=== PATIENT | female | born 1985 | race Caucasian/White ===

== ENCOUNTER 2023-12-17 10:49 | Inpatient (IN) | payer BC ==
[~2023-12-17] VITALS: Ht 170.2 cm; Wt 144.7 kg
[2023-12-17 11:10] LABS: BASOPHILS # (AUTO) 0.1 K/uL (0.0-0.2); BASOPHILS % (AUTO) 0.6 % (0.0-2.0); EOSINOPHILS # (AUTO) 0.1 K/uL (0.0-0.7); HEMATOCRIT 47 % (33-45); HEMOGLOBIN 15.3 g/dL (11.5-14.8); LYMPHOCYTES # (AUTO) 2.2 K/uL (0.8-4.8); LYMPHOCYTES % (AUTO) 25.4 % (20.0-44.0); MEAN CORPUSCULAR HEMOGLOBIN 28 PG (26.0-33.0); MEAN CORPUSCULAR HGB CONC 33 g/dl (31.0-36.0); MEAN CORPUSCULAR VOLUME 86 fL (82-100); MONOCYTES # (AUTO) 0.4 K/uL (0.1-1.30); MONOCYTES % (AUTO) 4.8 % (2.0-12.0); NEUTROPHILS % (AUTO) 68.2 % (43.0-81.0); PLATELET COUNT (AUTO) 455 K/uL (150-450); RED BLOOD CELL COUNT(AUTO) 5.43 MIL/uL (4.0-5.2); RED CELL DISTRIBUTION WIDTH 13.5 % (11.5-15.0); WHITE BLOOD COUNT (AUTO) 8.8 K/uL (4.3-11.0)
[2023-12-17] MEDS ORDERED: IV NS 0.9% 250 ML IV ONE (11:11)
[2023-12-17] MEDS ORDERED: IOHEXOL-350 100 ML VIAL IV ONE (11:11)
[2023-12-17] MEDS ORDERED: CT SWABBABLE VALVE TRANS SET 1 EA INFUS.SET MC ONE (11:11)
[2023-12-17 11:20] LABS: CALCIUM, SERUM 9.4 mg/dL (8.5-10.1); CARBON DIOXIDE 27 mmol/L (21-32); CHLORIDE 102 mmol/L (98-107); CREATININE 0.8 mg/dL (0.6-1.3); GLUCOSE 142 mg/dL (74-106); POTASSIUM 4.2 mmol/L (3.5-5.1); SODIUM SERUM 139 mmol/L (136-145); UREA NITROGEN, BLOOD 7 mg/dL (7-18)
[2023-12-17 11:22] LABS: INR 1.08 (0.91-1.10); PARTIAL THROMBOPLASTIN TIME 27.1 SEC (24.3-34.3); PROTHROMBIN TIME 11.4 SECS (9.2-11.1)
[2023-12-17] MEDS ORDERED: PROP10TA68 PO (12:40)
[2023-12-17] MEDS ORDERED: ESCI10TA PO (12:40)
[2023-12-17] MEDS ORDERED: NORE5TAB PO (12:40)
[2023-12-17] MEDS ORDERED: SEMA1PEN SQ (12:40)
[2023-12-17] MEDS ORDERED: AMLO-213 PO (12:40)
[2023-12-17] MEDS ORDERED: ASPIRIN 81 MG TAB.CHEW PO ONE (13:00)
[2023-12-17] MEDS ORDERED: MAG HYDROX/AL HYDROX/SIMETH 30 ML UDC PO PRN (13:00)
[2023-12-17] MEDS ORDERED: MAGNESIUM HYDROXIDE 30 ML UDC PO PRN (13:00)
[2023-12-17] MEDS ORDERED: Z GUARD REMEDY 4 OZ OINT TP PRN ×2 (13:00→14:15)
[2023-12-17] MEDS ORDERED: ONDANSETRON HCL/PF 4 MG/2 ML VIAL IVP PRN ×2 (13:00→14:15)
[2023-12-17] MEDS ORDERED: CLOPIDOGREL BISULFATE 75 MG TABLET PO ONE (13:00)
[2023-12-17 13:48] LABS: APPEARANCE,URINE CLEAR (CLEAR); BILIRUBIN,URINE NEGATIVE (NEGATIVE); BLOOD, URINE 1+ Ery/uL (NEGATIVE); COLOR,URINE YELLOW (YELLOW); KETONES,URINE NEGATIVE (NEGATIVE); LEUKOCYTE ESTERASE ,URINE NEGATIVE (NEGATIVE); NITRITE, URINE NEGATIVE (NEGATIVE); PROTEIN,URINE TRACE mg/dl (NEGATIVE); UGLUCOSE NEGATIVE (NEGATIVE); UROBILINOGEN,URINE 0.2 EU/dL (0.2)
[2023-12-17 14:05] LABS: ADD URINE CULTURE NO; BACTERIA,URINE Rare /HPF (None Seen); WBC,URINE 0-2 /HPF (0-3)
[2023-12-17 15:23] LABS: THYROID STIMULATING HORMONE 1.37 uIU/mL (0.358-3.74)
[2023-12-17 20:00] VITALS: BP 138/99; TEMP 98.2; O2SAT 96
[2023-12-17] MEDS: ATORVASTATIN 40 MG TABLET PO SCH (22:02)
[2023-12-17] MEDS: ACETAMINOPHEN 325 MG TABLET PO PRN (22:02)
[2023-12-18] VITALS: BP 142/109; TEMP 98.4; O2SAT 94; O2SAT 95
[2023-12-18 04:00] VITALS: BP 135/101; TEMP 98.2; O2SAT 98
[2023-12-18 05:00] VITALS: BP 135/101; TEMP 98.2; O2SAT 98
[2023-12-18] MEDS: ESCITALOPRAM OXALATE (10 MG) 10 MG TABLET PO SCH (08:45)
[2023-12-18 09:47] LABS: BASOPHILS # (AUTO) 0.1 K/uL (0.0-0.2); BASOPHILS % (AUTO) 0.6 % (0.0-2.0); EOSINOPHILS # (AUTO) 0.1 K/uL (0.0-0.7); EOSINOPHILS % (AUTO) 1.6 % (0.0-6.0); HEMATOCRIT 43 % (33-45); HEMOGLOBIN 14.4 g/dL (11.5-14.8); LYMPHOCYTES # (AUTO) 2.1 K/uL (0.8-4.8); LYMPHOCYTES % (AUTO) 23.9 % (20.0-44.0); MEAN CORPUSCULAR HEMOGLOBIN 28 PG (26.0-33.0); MEAN CORPUSCULAR HGB CONC 33 g/dl (31.0-36.0); MEAN CORPUSCULAR VOLUME 85 fL (82-100); MONOCYTES # (AUTO) 0.4 K/uL (0.1-1.30); MONOCYTES % (AUTO) 4.8 % (2.0-12.0); NEUTROPHILS % (AUTO) 69.1 % (43.0-81.0); PLATELET COUNT (AUTO) 434 K/uL (150-450); RED BLOOD CELL COUNT(AUTO) 5.12 MIL/uL (4.0-5.2); RED CELL DISTRIBUTION WIDTH 13.5 % (11.5-15.0); WHITE BLOOD COUNT (AUTO) 8.7 K/uL (4.3-11.0)
[2023-12-18 10:03] LABS: CALCIUM, SERUM 8.7 mg/dL (8.5-10.1); CREATININE 0.8 mg/dL (0.6-1.3); MAGNESIUM 1.8 mg/dL (1.8-2.4); PHOSPHORUS 2.8 mg/dL (2.5-4.9); POTASSIUM 3.2 mmol/L (3.5-5.1)
[2023-12-18 12:00] VITALS: BP 130/82; TEMP 98.1; O2SAT 98
[2023-12-18] MEDS: POTASSIUM CHLORIDE 10 MEQ TABLET.SA PO ONE (13:02)
[2023-12-18] MEDS: ASPIRIN EC 81 MG TABLET.DR PO SCH (13:02)
[2023-12-18] MEDS: CLOPIDOGREL BISULFATE 75 MG TABLET PO SCH (13:03)
[2023-12-18 16:24] VITALS: BP 154/98; TEMP 99.3; O2SAT 98
[2023-12-18 20:34] VITALS: BP 155/112; TEMP 98.4; O2SAT 97
[2023-12-19] MEDS: METHOCARBAMOL (500MG) 500 MG TABLET PO SCH (00:18)
[2023-12-19 00:26] VITALS: BP 159/117; TEMP 98.4; O2SAT 100
[2023-12-19] MEDS: MORPHINE SULFATE INJ 2 MG/ML DISP.SYRIN IV ONE (03:21)
[2023-12-19 04:11] VITALS: BP 144/99; TEMP 97.9; O2SAT 99
[2023-12-19 04:13] VITALS: BP 144/99; TEMP 97.9; O2SAT 99
[2023-12-19 08:00] VITALS: BP 133/96; TEMP 97.9; O2SAT 98
[2023-12-19] MEDS: GABAPENTIN 300 MG CAPSULE PO SCH (09:35)
[2023-12-19] MEDS ORDERED: ATOR40TA PO (11:41)
[2023-12-19] MEDS ORDERED: Aspirin Ec PO (11:41)
[2023-12-19 12:00] VITALS: BP 130/88; TEMP 98.4; O2SAT 90
[2023-12-22 09:09] LABS: VITAMIN B1 THIAMINE,WB 115.6 nmol/L (66.5-200.0)
== END 2023-12-19 14:51 | disposition home or self-care (01) | DRG 69 ==
LOC: ER 10:50 → TELE 14:07
PROVIDERS: ADMIT Nurse Practitioner Family; ATTEND Nurse Practitioner Family
DX: G45.9 Transient cerebral ischemic attack, unspecified (principal); Z68.43 Body mass index [BMI] 50.0-59.9, adult; G54.0 Brachial plexus disorders; M54.32 Sciatica, left side; F41.9 Anxiety disorder, unspecified; E66.9 Obesity, unspecified; I10 Essential (primary) hypertension; E03.9 Hypothyroidism, unspecified; E66.01 Morbid (severe) obesity due to excess calories; E78.5 Hyperlipidemia, unspecified; F32.A Depression, unspecified; R53.1 Weakness; R73.9 Hyperglycemia, unspecified; R27.8 Other lack of coordination; M62.838 Other muscle spasm; G56.22 Lesion of ulnar nerve, left upper limb; R29.701 NIHSS score 1
CPT/HCPCS: 36415; 70450-TC; 70496-TC; 70498-TC; 70551-TC; 71045-TC; 72131-TC; 73610-TC; 80048-TC; 80061-TC; 81001; 82607-TC; 82962-TC; 83735-TC; 83921; 84100-TC; 84425; 84443-TC; 84484-TC; 84702-TC; 85025-TC; 85730-TC; 93307-TC; 97110-TC; 97116-TC; 97530-TC; G0378; J2270; J7050; Q9967